=== PATIENT | female | born 2000 | race African-American/Black ===

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

== ENCOUNTER 2022-06-02 03:24 | Observation (INO) | payer MEDICAID, OTHER ==
[2022-06-02] MEDS ORDERED: Ondansetron PF 4 MG/2 ML Vial IVP PRN (03:57)
[2022-06-02] MEDS ORDERED: Meperidine HCl/PF 25 MG/ML VIAL IM PRN ×2 (04:03→04:15)
[2022-06-02] MEDS ORDERED: Dextrose 5%-Lactated Ringers 1,000 ML IV SCH (04:15)
[2022-06-02] MEDS ORDERED: Morphine 4 MG/ML VIAL SLOW IVP PRN (05:06)
[2022-06-02 05:46] VITALS: BMI 24.5
[2022-06-02] MEDS ORDERED: Ketorolac Tromethamine 30 MG/ML VIAL IM SCH (08:00)
[2022-06-02 08:56] LABS: Bilirubin Neg (Negative); Blood, Urine 250 (Negative); Clarity Clear (Clear); Glucose, Urine (Dipstick) Normal (Negative); Ketone, Urine 150 mg/dL (Negative); Leukocyte 100 (Negative); Nitrite Negative (Negative); Protein, Urine (Dipstick) 30 mg/dl (Neg-Trace); Urobilinogen Normal mg/dL (Less than 2)
[2022-06-02 09:07] LABS: Pregnancy Test - Urine (BHCG) Negative (Negative)
[2022-06-02 09:08] LABS: Pregu Control Background? CLEAR/WHITE (CLR/WHITE); Pregu Control Bar Appear? YES (CONTROL BAR)
[2022-06-02 09:16] LABS: CAUTI Indications for Culture Pelvic or flank pain
[2022-06-02 09:19] LABS: Bacteria/HPF Rare-Few HPF (None Seen); Mucous/LPF 1+ LPF (<2+)
[2022-06-02 09:20] LABS: Squamous Epithelial 0-3 HPF (0-3)
[2022-06-02 09:21] LABS: Urine Culture Reflex No No
[2022-06-02] MEDS ORDERED: HYDROcodone/Acetaminophen 5/325 mg Tablet PO PRN ×2 (09:28)
[2022-06-02 11:13] VITALS: TEMP 97.8
[2022-06-02] MEDS ORDERED: Ibuprofen 800 MG TAB PO SCH (13:30)
[2022-06-02 15:59] VITALS: BP 100/57
== END 2022-06-02 17:55 | disposition home or self-care (01) ==
LOC: CSHERS 03:24 → CSHPP 05:22 → INTOOBSV 05:22
PROVIDERS: ADMIT Obstetrics & Gynecology; ATTEND Obstetrics & Gynecology
DX: R10.2 Pelvic and perineal pain (principal); N83.201 Unspecified ovarian cyst, right side; D64.9 Anemia, unspecified; F41.9 Anxiety disorder, unspecified; F32.A Depression, unspecified; Z79.899 Other long term (current) drug therapy; Z87.891 Personal history of nicotine dependence
CPT/HCPCS: 81001; 81025; 96374; 96375; 99284; G0378; J1885; J2270